=== PATIENT | female | born 1950 | race African-American/Black ===

== ENCOUNTER 2023-05-30 12:44 | Emergency (ER) | payer MEDICARE, SELFPAY ==
[2023-05-30] VITALS (15 sets, daily range): BP systolic 42–172; BP diastolic 23–106; PULSE 55; RESP 20; TEMP 36.8; O2SAT 93–100
--- NOTE | ~2023-05-30 | XR_ITS ---
EXAMINATION: XR chest 2V DATE: 05/30/2023 13:52 INDICATION: Chest pain TECHNIQUE: frontal and lateral views of the chest were obtained. COMPARISON: None FINDINGS: The lungs are clear with no focal airspace opacities, pulmonary edema, pleural effusion or pneumothor ax. The cardiomediastinal silhouette is within normal limits for AP technique. Mild thoracic spondylo sis with mild anterior wedging of a few mid thoracic vertebral bodies. IMPRESSION: 1. No acute cardiopulmonary disease. Reviewed, dictated and finalized at location A.
--- NOTE | ~2023-05-30 | CT_ITS ---
EXAMINATION: CTA chest PE abdomen DATE: 05/30/2023 17:45 INDICATION: Chest and abdominal pain TECHNIQUE: Computed tomography angiography (CTA) of the chest was performed with 100 mL Omnipaque-350 intravenous contrast timed to evaluate the pulmonary arteries. Subsequent postcontrast images of the abdomen and pelvis are obtained. Coronal maximum intensity projection 3D-reconstructions were create d by the technologist. The dose-length product (DLP) was 1465.00 mGy-cm. Automated exposure control a nd iterative reconstruction technique were employed. COMPARISON: None. FINDINGS: CTA CHEST: The pulmonary arteries are well-opacified. No pulmonary embolism is identified. There is m ild dependent atelectasis. The lungs are free of focal airspace opacities. Cardiomegaly is noted. The re are no pathologically enlarged thoracic lymph nodes. No pleural effusion or pneumothorax. There is moderate thoracic spondylosis. There is multinodular goiter of the right thyroid lobe. ABDOMEN CT: The liver, spleen, pancreas, and adrenal glands are normal. Stones are present in the non distended gallbladder. The right kidney is unremarkable. There is a 1.4 cm cyst of the left kidney. T here are no pathologically enlarged abdominal lymph nodes. No free intraperitoneal gas or evidence of bowel obstruction. The appendix is normal. IMPRESSION: 1. No CT correlate for the patient's symptoms. 2. Multinodular goiter of the right thyroid lobe. Consider nonemergent thyroid ultrasound for risk st ratification. Reviewed, dictated and finalized at location F. IMPRESSION: 1. No CT correlate for the patient's symptoms. 2. Multinodular goiter of the right thyroid lobe. Consider nonemergent thyroid ultrasound for risk stratification.
--- NOTE | 2023-05-30 12:47 | ECG_ITS ---
Measurements Intervals Ward Rate: 55 P: 48 OR: 195 QRS: -20 QRSD: 104 T: -15 QT: 443 QTc: 427 Interpretive Statements SINUS BRADYCARDIA ATRIAL PREMATURE COMPLEX DELAYED PRECORDIAL R/S TRANSITION LEFT VENTRICULAR HYPERTROPHY AND ST-T CHANGE T WAVE ABNORMALITY IN ANTEROLATERAL LEADS- CONSIDER ISCHEMIA ABNORMAL ECG NO PREVIOUS ECG AVAILABLE FOR COMPARISON Electronically Signed On 05-30-2023 13:39:04 CDT by Surya Thurman D.O.
[2023-05-30] MEDS: ASPIRIN 81 MG CHEWABLE TABLET 324 MG PO (13:17)
[2023-05-30 13:51] LABS: Basophils Absolute Auto 0.1 K/mm3 (0.0-0.1); Basophils Percent Auto 0.8 % (0.2-1.2); Eosinophils Absolute Auto 0.3 K/mm3 (0-0.3); Eosinophils Percent Auto 2.8 % (0-4.4); Hemoglobin 12.5 g/dL (12.0-15.0); Immature Granulocyte Absolute 0.03 K/mm3 (0.00-0.031); Immature Granulocyte Percent A 0.3 % (0-0.5); Lymphocytes Absolute Auto 2.62 K/mm3 (0.9-3.2); Mean Corpuscular HGB Conc 32.9 g/dl (32-36); Mean Corpuscular Hemoglobin 30.8 pg (26-34); Mean Corpuscular Volume 93.6 fl (80-100); Mean Platelet Volume 10.2 fl (7.4-10.4); Monocytes Absolute Auto 0.9 K/mm3 (0.1-0.6); Neutrophils Absolute Auto 5.2 K/mm3 (1.3-6.7); Neutrophils Percent Auto 57.1 % (45.5-73.1); Platelet Count Result 264 k/mm3 (150-375); Red Blood Count 4.06 M/mm3 (4.2-5.4); Red Cell Distribution Width 13.9 % (11.5-14.5)
[2023-05-30 14:00] LABS: Alanine Aminotransferase 19 U/L (6-35); Albumin Level 4.1 g/dL (3.5-5.1); Alkaline Phosphatase 80 U/L (38-126); Anion Gap 7 mmol/L (8-16); Aspartate Amino Transferase 23 U/L (14-36); Bilirubin,Total 0.7 mg/dL (0.2-1.3); Blood Urea Nitrogen 10 mg/dL (7-17); Calcium 9.4 mg/dL (8.4-10.2); Carbon Dioxide 28 mmol/L (22-30); Chloride 105 mmol/L (98-107); Estimated CRCL calculation 58 ml/min; Estimated Glomerular Filt Rate 59; Glucose 102 mg/dL (65-110); Lipase 56 U/L (23-300); Potassium 3.7 mmol/L (3.4-5.0); Sodium 140 mmol/L (137-145)
[2023-05-30 14:03] LABS: Partial Thromboplastin Time 29.7 SECONDS (22.3-36.8)
[2023-05-30 14:12] LABS: Troponin I < 0.012 ng/mL (0.000-0.034)
[2023-05-30 16:28] LABS: Troponin I < 0.012 ng/mL (0.000-0.034)
[2023-05-30 16:33] LABS: SARS-CoV-2 RNA PCR Negative (Negative)
--- NOTE | 2023-05-30 16:58 | ED.CHESTPAIN ---
HPI - Chest Pain General Chief Complaint: Chest Pain Stated Complaint: chest pain Time Seen by Provider: 05/30/23 13:47 Source: patient and family Mode of arrival: ambulatory Limitations: no limitations History of Present Illness HPI narrative: 73 years old -[place] female presents to the ED with sharp stabbing pain across the chest started 3 days ago, steady, denies relieving factors, worse with deep breath and coughing. Patient tested negative for COVID at home 4 days ago, reports some sore throat, nasal and postnasal discharge 4 days ago. History of hypertension, hyperlipidemia, asthma, hypothyroidism, [place] 2007, patient not on antiplatelet or anticoagulant medication, does not smoke or uses drugs, drinks occasionally Related Data Allergies Allergy/AdvReac Type Severity Reaction Status Date / Time No Known Allergies Allergy Verified 05/30/23 12:56 Review of Systems Review of Systems: All systems reviewed & are unremarkable except as noted in HPI and below Exam Narrative: General appearance: Well-developed, well-nourished Skin: Normal color Head: Normocephalic, nontraumatic Eyes: Clear conjunctiva ENT: Oropharynx normal, ears normal, nose normal Neck: Supple, nontender Chest and respiratory: Airway patent, no respiratory distress, no accessory muscle use mild diffuse chest wall tenderness, no bruises or rash or swelling. Heart: Regular rate/rhythm Abdomen: Soft, nontender, no organomegaly, quiet bowel sounds Vascular: Normal peripheral pulses, normal capillary refill. Musculoskeletal: Normal range of motion, nontender back Neurologic: Alert and oriented ?3, STOPER is normal as tested, no gross motor deficit Course Vital Signs Vital signs: Vital Signs Temperature 36.8 C 05/30/23 12:50 Pulse Rate 55 L 05/30/23 12:50 Respiratory Rate 05/30/23 12:50 Blood Pressure 172/79 H 05/30/23 12:50 Pulse Oximetry 98 05/30/23 12:50 Oxygen Delivery Room Air 05/30/23 12:50 Temperature 36.8 C 05/30/23 12:50 Pulse Rate 55 L 05/30/23 12:50 Respiratory Rate 05/30/23 12:50 Blood Pressure 169/83 H 05/30/23 17:01 Pulse Oximetry 100 05/30/23 17:09 Oxygen Delivery Room Air 05/30/23 13:17 MDM - Chest Pain MDM Narrative Medical decision making narrative: Patient presents with steady sharp stabbing pain across the chest for the last 3 days, been having cold symptoms over the last 4 days with coughing. Chest pain worse with breathing and coughing. Physical examination consistent with mild diffuse tenderness across the chest, differential diagnosis musculoskeletal, chest wall pain, pneumonia, viral infection, pleurisy Work-up today showed, unremarkable blood work-up p except a creatinine of 1.1, chest x-ray showed no acute abnormalities. CTA pulmonary showed no pulmonary embolism., Multinodular goiter of the right thyroid lobe consider none emergent thyroid ultrasound for risk stratification patient is aware of the thyroid nodule and been under evaluation by her family physician for Chest wall pain, cough is my concern. Differential Diagnosis Differential diagnosis: Likely pneumothorax, unstable angina pectoris, atypical chest pain, costochondritis and chest pain Lab Data Attestation: I reviewed the patient's lab results. 05/30/23 13:44 05/30/23 13:44 Labs: Lab Results 05/30/23 05/30/23 Range/Units 13:44 15:54 WBC 9.0 (4.5-10.0) K/mm3 RBC 4.06 L (4.2-5.4) M/mm3 Hgb 12.5 (12.0-15.0) g/dL Hct 38.0 (37.0-47.0) % MCV 93.6 (80-100) fl MCH 30.8 (26-34) pg MCHC 32.9 (32-36) g/dl RDW 13.9 (11.5-14.5) % Plt Count 264 (150-375) k/mm3 MPV
== END 2023-05-30 18:53 | disposition home or self-care (01) ==
PROVIDERS: Emergency Provider Emergency Medicine
DX: R07.89 Other chest pain (principal); Z20.822 Contact with and (suspected) exposure to COVID-19; I10 Essential (primary) hypertension; I25.2 Old myocardial infarction; J45.909 Unspecified asthma, uncomplicated; E78.5 Hyperlipidemia, unspecified; E03.9 Hypothyroidism, unspecified; I49.1 Atrial premature depolarization; I51.7 Cardiomegaly; R94.31 Abnormal electrocardiogram [ECG] [EKG]; E04.2 Nontoxic multinodular goiter
CPT/HCPCS: 36415; 71046; 71275; 74160; 80053; 83690; 84484; 85025; 85610; 85730; 87635; 93005; 99284; A9270; Q9967

== ENCOUNTER 2024-04-19 12:14 | Outpatient (CLI) | payer MEDICARE, SELFPAY ==
--- NOTE | ~2024-04-19 | MM_ITS ---
EXAMINATION: MM screening amita BI w janneth HISTORY: Screening TECHNIQUE: Craniocaudal and mediolateral oblique 3-D tomosynthesis images were obtained and synthetic 2-D images were generated. CAD analysis was submitted and interpreted. COMPARISON: No prior mammogram is available for comparison at this institution. BREAST PARENCHYMAL COMPOSITION: FINDINGS: There is no evidence of suspicious mass, calcification, or architectural distortion to sugg est malignancy in either breast. There has been no suspicious interval change. IMPRESSION: 1. No mammographic evidence of malignancy. 2. Recommend routine screening mammography in one year. BI-RADS Category 1: Negative Reviewed, dictated and finalized at location B.
== END 2024-04-19 12:15 ==
PROVIDERS: PCP Family Medicine; Visit Provider Family Medicine
DX: Z12.31 Encounter for screening mammogram for malignant neoplasm of breast (principal)
CPT/HCPCS: 77063; 77067